=== PATIENT | male | born 1960 | race Caucasian/White ===

== ENCOUNTER 2017-06-25 09:28 | Day surgery (SDC) | payer OTHER ==
[~2017-06-25] VITALS: Ht 188 cm; Wt 94.3 kg
[2017-06-25] VITALS (10 sets, daily range): BP systolic 116–151; BP diastolic 63–88
--- NOTE | 2017-06-25 07:18 | Operative Note - PDOC ---
Operative Note Operative Note Pre-op Diagnosis: left PF chondral damage Procedure: left knee PFA Post-op Diagnosis: same as pre-op plus Operative Findings: consistent w/pre-op dx studies Anesthesia: regional Specimen: none Complications: none Condition: stable Estimated Blood Loss: none Implant(s) used?: Yes ARACELIS LLAMAS Jun 25, 2017 07:18
--- NOTE | 2017-06-25 07:18 | Pre-Procedure Note/Attestation ---
Pre-Procedure Note/Attestation Complete Prior to Procedure Planned Procedure: left Procedure Narrative: knee PFA Indications for Procedure Pre-Operative Diagnosis: left PF chondral damage Attestation I attest that I discussed the nature of the procedure; its benefits; risks and complications; and alternatives (and the risks and benefits of such alternatives ), prior to the procedure, with the patient (or the patient's legal medical representative). I attest that, if there was a reasonable possibility of needing a blood transfusion, the patient (or the patient's legal medical representative) was given the [facility] standardized written summary, pursuant to the Zev Diane Blood Safety Act ([place] Health and Safety Code # 1645, as amended). I attest that I re-evaluated the patient just prior to the surgery and that there has been no change in the patient's H&P, except as documented below: ARACELIS LLAMAS Jun 25, 2017 07:18
[~2017-06-25 09:28] MED LIST: NKM; ceFAZolin 1gm in D5W 55ml IVP ONE; celeBREX 200mg Cap **SURGERY PATIENTS ONLY ORAL ONE; oxyCONTIN 20mg tab ORAL ONE
[2017-06-25] MEDS ORDERED: Bacitracin 50000 Units Vial ONE (10:56)
[2017-06-25] MEDS ORDERED: Kenalog-40 1ml Vial ONE (10:56)
[2017-06-25] MEDS ORDERED: Bupivacaine 0.25% Inj 30ml INJ ONE (10:56)
[2017-06-25] MEDS ORDERED: Bupivacaine w/Epi 0.5% 30ml Vial INJ ONE (10:56)
[2017-06-25] MEDS ORDERED: FISH OIL CAP1000 MG ORAL (10:56)
[2017-06-25] MEDS ORDERED: Ketorolac 30mg Inj ONE (10:56)
[2017-06-25] MEDS ORDERED: MULTIVITAMINS1 EAC2 ORAL (10:56)
[2017-06-25] MEDS ORDERED: AMINO ACID1 EACH PO (10:57)
[2017-06-25] MEDS ORDERED: Duramorph PF 5mg/10ml amp ONE (11:11)
[2017-06-25] MEDS ORDERED: Ropivacaine 5mg/ml Vial 20ml INJ ONE (11:24)
[2017-06-25] MEDS ORDERED: Bupivacaine 0.5% Inj 30 ml vial INJ ONE (11:24)
[2017-06-25] MEDS ORDERED: LR 1000ml ONE (11:30)
[2017-06-25] MEDS ORDERED: Morphine Sulfate 10mg/ml Inj ONE (11:30)
[2017-06-25] MEDS ORDERED: Propofol 10mg/ml 20ml IV ONE (11:30)
[2017-06-25] MEDS ORDERED: Sterile Water Irrig 1000ml IRRIG ONE (11:30)
[2017-06-25] MEDS ORDERED: fentaNYL 100 mcg/2 mL IV ONE (11:30)
[2017-06-25] MEDS ORDERED: Midazolam 2mg/2ml Inj ONE (11:30)
[2017-06-25] MEDS ORDERED: NS Irrig 1000ml ONE (11:30)
--- NOTE | 2017-06-25 12:14 | Anethesia Preoperative Eval ---
Anesthesia Pre-op PMH/ROS General Date of Evaluation: Jun 25, 2017 Time of Evaluation: 11:00 Anesthesiologist: linda ASA Score: ASA 1 Mallampati Score Class I : Soft palate, uvula, fauces, pillars visible Class II: Soft palate, uvula, fauces visible Class III: Soft palate, base of uvula visible Class IV: Only hard plate visible Mallampati Classification: Class I Allergies: Coded Allergies: No Known Allergies (Unverified , 06/24/17) Anesthesia Pre-op Phys. Exam Physician Exam Last Vital Signs Date Time Temp Pulse Resp B/P Pulse Ox O2 Delivery O2 Flow Rate FiO2 06/25/17 10:51 98.8 64 18 132/78 97 Room Air Pippa Orosco MD Jun 25, 2017 12:14
[2017-06-25] MEDS ORDERED: Hydromorphone 0.5mg/0.5ml inj IVP PRN (12:15)
[2017-06-25] MEDS ORDERED: Ketorolac 30mg Inj IV PRN (12:15)
[2017-06-25] MEDS ORDERED: fentaNYL 100 mcg/2 mL IV PRN (12:15)
--- NOTE | 2017-06-25 13:41 | Immediate Post-Op Evaluation ---
Immediate Post-Op Evalulation Immediate Post-Op Evalulation Procedure: left patello-femoral replc Date of Evaluation: Jun 25, 2017 Time of Evaluation: 13:41 Nausea: No Vomiting: No Hydration Status: adequate Given Within 1 Hr of Incision: Yes Pippa Orosco MD Jun 25, 2017 13:41
--- NOTE | 2017-06-25 14:55 | 48 Hour Post Anesthesia Eval ---
Post Anesthesia Evaluation Procedure: left patello-femoral replc Date of Evaluation: Jun 25, 2017 Time of Evaluation: 14:54 Blood Pressure Systolic: 116 0: 72 Pulse Rate: 64 Respiratory Rate: 20 Temperature (Fahrenheit): 97.6 O2 Sat by Pulse Oximetry: 99 Airway: patent Nausea: No Vomiting: No Pain Intensity: 3 Hydration Status: adequate Cardiopulmonary Status: stable Mental Status/LOC: patient returned to baseline Follow-up Care/Observations: n/a Post-Anesthesia Complications: none Follow-up care needed: ready to discharge JENNI FISHER M.D. Jun 25, 2017 14:55
[2017-06-25] MEDS ORDERED: HYDROmorphone 1mg/ml Carpuject SUBQ PRN (17:01)
[2017-06-25] MEDS ORDERED: D5 1/2NS 1,000 ML IV SCH (17:01)
[2017-06-25] MEDS ORDERED: Norco 5mg/325mg tab ORAL PRN (17:01)
[2017-06-25] MEDS ORDERED: Tylenol #3 tab (300mg/30mg) ORAL PRN (17:01)
--- NOTE | 2017-06-26 00:32 | Operative Note - Dictated ---
DATE OF OPERATION: 06/25/2017 PREOPERATIVE DIAGNOSIS: Left traumatic patellofemoral arthrosis. POSTOPERATIVE DIAGNOSIS: Left traumatic patellofemoral arthrosis. PROCEDURE: Left patellofemoral knee replacement. SURGEON: Jr Stovall M.D. ANESTHESIA: Femoral adductor with general. INDICATION FOR PROCEDURE: The patient is a pleasant gentleman who has had progressive patellofemoral pain after an accident. He failed conservative treatment and elected to undergo left knee patellofemoral arthroplasty. Risks, limitations, expectations, and complications of the procedure were discussed in detail. All questions addressed. DESCRIPTION OF PROCEDURE: After informed consent was obtained, the patient was brought to the operating room and placed the patient under femoral adductor and general anesthesia. Tourniquet was applied to the left proximal thigh. Left leg was prepped in a sterile manner. Time-out performed. The skin was incised medially and skin flaps were created. Distal medial subvastus arthrotomy was performed. At this point, inspection of the knee showed primarily patellofemoral chondral damage. The medial and lateral compartments were free of any chondral damage. The meniscus appeared to be grossly intact. The cartilage had areas of chondral flaps with softening of the cartilage rather than complete eburnated cartilage down to bone. This is more consistent with a traumatic nature of his incident. At this point, the patella was everted, measured 24 mm. Freehand resection was performed. A 35 mm patellar component was selected. We calculated 24 mm in width. At this point, the distal femur was well visualized. Intramedullary prashant was placed. The anterior cutting guide was then placed to make sure this is perpendicular to the [place] line. The anterior femoral cortex was then resected. Once this was done, size 3 was selected; however, the size 3 has significant mediolateral overhang. Therefore, a size 2 was selected. It seemed like on the anterior and posterior it was appropriate. The anterior and medial with concern whether or not it was distal enough to the intercondylar notch. At this point, the size 2 was placed. It seemed like it was relatively in good position on AP and lateral. The chamfer cuts were then made. The trial components were placed. The knee was taken through range of motion, tracked very well without any subluxation or tilt of the patella. There was no popping or catching. At this point, the cement was prepared and implants were impacted into place. Excess cement was removed. Arthrotomy site was closed with #1 Vicryl suture, 2-0 Vicryl suture, and 3-0 Monocryl suture. Dermabond dressing was applied. The patient was awoken and taken to recovery room with stable vital signs. ESTIMATED BLOOD LOSS: Minimal. COMPLICATIONS: None. SPECIMENS: None. IMPLANTS: Size 2 femoral component, size 35 mm patellar component. Jr Stovall M.D. DR: SARI JOB#: [id number] CC:
== END 2017-06-25 16:10 | disposition home or self-care (01) ==
LOC: SUR 09:28 → SDSOVERFLO 09:38 → UNDOADMIN 09:38 → EDSTATUS 14:15 → SUR 16:10
DX: M17.32 Unilateral post-traumatic osteoarthritis, left knee (principal); J45.909 Unspecified asthma, uncomplicated
CPT/HCPCS: 27442; 87081; 97161; C1776; J0690; J1170; J1885; J2250; J2270; J2704; J2795; J3010; J3301; J3490; J7120; 94003; 94150